=== PATIENT | female | born 1985 | race American Indian/Alaskan Native ===

== ENCOUNTER 2016-05-04 13:51 | Emergency (ER) | payer SELFPAY ==
[2016-05-04] MEDS ORDERED: CLEOCIN PO ONE (18:44)
[2016-05-04] MEDS ORDERED: MOTRIN PO ONE (18:44)
--- NOTE | 2016-05-04 19:11 | Emergency Department Report ---
ED ENT HPI - General Chief complaint: Sore Throat Stated complaint: LUMP IN THROAT/DIFF SWALLOWING Source: patient Mode of arrival: Ambulatory Limitations: No Limitations - History of Present Illness Initial comments: 30-year-old female comes in for complaint of swelling of the left neck and third molar impaction. MD complaint: tooth pain, sore throat - Related Data Previous Rx's Medication Instructions Recorded Last Taken Type Clindamycin [Clindamycin CAP] 300 mg PO TID #30 capsule 05/04/16 Unknown Rx Ibuprofen [Motrin 800 MG tab] 800 mg PO TID PRN #30 tablet 05/04/16 Unknown Rx Allergies Allergy/AdvReac Type Severity Reaction Status Date / Time No Known Allergies Allergy Unverified 05/04/16 14:50 ED Dental HPI - General Chief complaint: Sore Throat Stated complaint: LUMP IN THROAT/DIFF SWALLOWING Source: patient Mode of arrival: Ambulatory Limitations: No Limitations - Related Data Previous Rx's Medication Instructions Recorded Last Taken Type Clindamycin [Clindamycin CAP] 300 mg PO TID #30 capsule 05/04/16 Unknown Rx Ibuprofen [Motrin 800 MG tab] 800 mg PO TID PRN #30 tablet 05/04/16 Unknown Rx Allergies Allergy/AdvReac Type Severity Reaction Status Date / Time No Known Allergies Allergy Unverified 05/04/16 14:50 ED Review of Systems ROS: Stated complaint: LUMP IN THROAT/DIFF SWALLOWING Other details as noted in HPI ENT: throat pain, dental pain ED Past Medical Hx - Past Medical History Previous Medical History?: Yes Hx Diabetes: Yes (borderline) - Surgical History Past Surgical History?: No - Social History Smoking Status: Current Every Day Smoker Substance Use Type: Alcohol, Non Opiate Pain - Medications Home Medications: Home Medications Medication Instructions Recorded Confirmed Last Taken Type Clindamycin [Clindamycin CAP] 300 mg PO TID #30 capsule 05/04/16 Unknown Rx Ibuprofen [Motrin 800 MG tab] 800 mg PO TID PRN #30 tablet 05/04/16 Unknown Rx ED Physical Exam - General Limitations: No Limitations General appearance: alert, in no apparent distress - Head Head exam: Present: atraumatic, normocephalic - Eye Eye exam: Present: normal appearance - ENT ENT exam: Present: mucous membranes moist - Expanded ENT Exam Expanded Teeth exam: Present: dental tenderness # (17), gingival enlargement - Neck Neck exam: Present: lymphadenopathy (greater on the left) ED Course Vital Signs 05/04/16 14:51 Temperature 98.6 F Pulse Rate 66 Respiratory 18 Rate Blood Pressure 117/85 O2 Sat by Pulse 100 Oximetry ED Medical Decision Making - Medical Decision Making She's been evaluated by this provider fast track with the patient ibuprofen for pain clindamycin 600 mg by mouth now we will discharge patient on ibuprofen 800 mg 3 times a day. As well as clindamycin 300 mg 1 tablet by mouth 3 times a day when necessary referral to dentistry. She verbalized understanding Critical care attestation.: If time is entered above; I have spent that time in minutes in the direct care of this critically ill patient, excluding procedure time. ED Disposition Clinical Impression: Tooth absence Disposition: DISCHARGED TO HOME OR SELFCARE Is pt being admited?: No Does the pt Need Aspirin: No Condition: Stable Instructions: Dental Abscess (ED) Prescriptions: Clindamycin [Clindamycin CAP] 300 mg PO TID #30 capsule Ibuprofen [Motrin 800 MG tab] 800 mg PO TID PRN #30 tablet PRN Reason: Pain Referrals: PRIMARY CARE, [Primary Care Provider] - 3-5 Days Forms: Work/School Release Form(ED)
[2016-05-04 20:16] VITALS: BP 148/57
== END 2016-05-04 20:16 | disposition home or self-care (01) ==
LOC: ED 13:51
DX: K00.0 Anodontia (principal); E11.9 Type 2 diabetes mellitus without complications; F17.200 Nicotine dependence, unspecified, uncomplicated
CPT/HCPCS: 99282